=== PATIENT | female | born 1995 | race African-American/Black ===

== ENCOUNTER 2023-05-18 17:39 | Emergency (ER) | payer OTHER ==
[2023-05-18 18:38] LABS: SARS-CoV-2 Antigen Rapid Res Negative (Negative)
--- NOTE | 2023-05-18 19:19 | ER ---
Nurse's Notes [facility] Name: Melissa Dawson Age: 28 yrs Sex: Female : 1995 Arrival Date: 05/18/2023 Time: 17:39 Bed 15 Private MD: Diagnosis: Influenza due to other identified influenza virus with gastrointestinal manifestations Presentation: 05/18 17:45 Chief complaint: Patient states: she has had cough, congestion, body aches, and chills ap3 that started yesterday. patient rates her body aches a 10/10 on the pain scale at this time. Coronavirus screen: Client presents with at least one sign or symptom that may indicate coronavirus-19. Ebola Screen: No symptoms or risks identified at this time. Initial Sepsis Screen: Does the patient meet any 2 criteria? HR > 90 bpm. Does the patient have a suspected source of infection? No. Patient's initial sepsis screen is negative. Risk Assessment: Do you want to hurt yourself or someone else? Patient reports no desire to harm self or others. Onset of symptoms was May 17, 2023. 17:45 Method Of Arrival: Ambulatory ap3 17:45 Acuity: CARLI 4 ap3 Triage Assessment: 17:47 General: Appears ill, Behavior is calm, cooperative, Reports chills for feeling ill for ap3 fatigue for. Pain: Complains of pain in generalized body aches Pain currently is 10 out of 10 on a pain scale. Neuro: Level of Consciousness is awake, alert, obeys commands, Oriented to person, place, time, situation. Cardiovascular: Patient's skin is warm and dry. Respiratory: Reports cough that is Airway is patent Respiratory effort is even, unlabored, Respiratory pattern is regular, symmetrical. 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 - Social history:: Smoking status: Patient denies any tobacco usage or history of. Patient uses alcohol, occasionally. Screenin:47 [facility] ED Fall Risk Assessment (Adult) History of falling in the last 3 months, ap3 including since admission No falls in past 3 months (0 pts). Abuse screen: Denies threats or abuse. Nutritional screening: No deficits noted. Tuberculosis screening: No symptoms or risk factors identified. Assessment: 18:00 General: Appears comfortable, Behavior is calm, cooperative. Pain: Complains of pain in aa5 whole body Quality of pain is described as aching. Neuro: Level of Consciousness is awake, alert, obeys commands, Oriented to person, place, time, situation. Cardiovascular: Heart tones S1 S2 present Rhythm is regular. Respiratory: Airway is patent Respiratory effort is even, unlabored, Respiratory pattern is regular, symmetrical, Breath sounds are clear bilaterally. GI: Abdomen is round non-distended, Abd is soft and non tender X 4 quads. : No signs and/or symptoms were reported regarding the genitourinary system. EENT: Reports nasal congestion. Derm: Skin is dry, Skin is normal, Skin temperature is warm. Musculoskeletal: Range of motion: intact in all extremities. 19:28 Reassessment: DC HOME AMBULATORY. Cardiovascular: Patient's skin is warm and dry. bp Vital Signs: 17:45 BP 167 / 97; Pulse 110; Resp 19; Temp 98.8; Pulse Ox 100% ; Weight 86.18 kg; Pain 10/10;ap3 17:45 Pain Scale: Adult ap3 ED Course: 17:40 Patient arrived in ED. rg4 17:40 [facility] snw 17:40 Dusty Farris MD is Attending Physician. snw 17:46 Triage completed. ap3 17:47 Arm band placed on right wrist. ap3 17:54 Katie Mcgill, RN is Primary Nurse. aa5 18:00 Patient has correct armband on for positive identification. Bed in low position. Call aa5 light in reach. Side rails up X 1. Adult w/ patient. 19:00 Report given to ELENI Ferro. aa5 19:28 No provider procedures requiring assistance completed. Patient did not have IV access bp during this emergency room visit. Administered Medications: 19:15 Drug: traMADol PO 50 mg Route: PO; bp 19:28 Follow up: Response: No adverse reaction bp Medication: 19:29 VIS not applicable for this client. bp Outcome: 19:18 Discharge ordered by . snw 19:29 Discharged to home ambulatory, with family. bp 19:29 Condition: stable 19:29 Discharge instructions given to patient, Instructed on discharge instructions, follow up and referral plans. medication usage, Demonstrated understanding of instructions, follow-up care, medications, Prescriptions given X 2. 19:29 Patient left the ED. bp Signatures: Sri Kong, GAS TENDER-C GAS TENDER-Csnw Katie Mcgill, RN RN aa5 Janice Mckeon4 Pillo Norris RN RN bp Sanaz Alcaraz RN RN ap3
--- NOTE | 2023-05-18 19:19 | EDPHYS ---
Physician Documentation [facility] Name: Melissa Dawson Age: 28 yrs Sex: Female : 1995 Arrival Date: 05/18/2023 Time: 17:39 Bed 15 Private MD: ED Physician Dusty Farris HPI: 05/18 18:10 This 28 yrs old Black Female presents to ER via Ambulatory with complaints of Cough, snw Congestion. 18:10 The patient or guardian reports airway noise, cough, flu symptoms. Onset: The snw symptoms/episode began/occurred acutely, 2 day(s) ago, and became persistent. Severity of symptoms: At their worst the symptoms were moderate. Associated signs and symptoms: Pertinent positives: diarrhea, nausea. The patient has not experienced similar symptoms in the past. The patient has not recently seen a physician. 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 - Social history:: Smoking status: Patient denies any tobacco usage or history of. Patient uses alcohol, occasionally. ROS: 18:09 Constitutional: Negative for fever, chills, and weight loss, Eyes: Negative for injury, snw pain, redness, and discharge, ENT: Negative for injury, pain, and discharge, + congestion Neck: Negative for injury, pain, and swelling, Cardiovascular: Negative for chest pain, palpitations, and edema, Respiratory: Negative for shortness of breath, cough, wheezing, and pleuritic chest pain. 18:09 Back: Negative for injury and pain, : Negative for injury, bleeding, discharge, and swelling, MS/Extremity: Negative for injury and deformity, Skin: Negative for injury, rash, and discoloration, Neuro: Negative for headache, weakness, numbness, tingling, and seizure. 18:09 Abdomen/GI: Positive for nausea, diarrhea. Exam: 18:09 Head/Face: Normocephalic, atraumatic. Eyes: Pupils equal round and reactive to light, snw extra-ocular motions intact. Lids and lashes normal. Conjunctiva and sclera are non-icteric and not injected. Cornea within normal limits. Periorbital areas with no swelling, redness, or edema. ENT: Nares patent. No nasal discharge, no septal abnormalities noted. Tympanic membranes are normal and external auditory canals are clear. Oropharynx with no redness, swelling, or masses, exudates, or evidence of obstruction, uvula midline. Mucous membranes moist. Neck: Trachea midline, no thyromegaly or masses palpated, and no cervical lymphadenopathy. Supple, full range of motion without nuchal rigidity, or vertebral point tenderness. No Meningismus. Chest/axilla: Normal chest wall appearance and motion. Nontender with no deformity. No lesions are appreciated. Respiratory: Lungs have equal breath sounds bilaterally, clear to auscultation and percussion. No rales, rhonchi or wheezes noted. No increased work of breathing, no retractions or nasal flaring. 18:09 Back: No spinal tenderness. No costovertebral tenderness. Full range of motion. Skin: Warm, dry with normal turgor. Normal color with no rashes, no lesions, and no evidence of cellulitis. MS/ Extremity: Pulses equal, no cyanosis. Neurovascular intact. Full, normal range of motion. Neuro: Awake and alert, GCS 15, oriented to person, place, time, and situation. Cranial nerves II-XII grossly intact. Motor strength 5/5 in all extremities. Sensory grossly intact. Cerebellar exam normal. Normal gait. Psych: Awake, alert, with orientation to person, place and time. Behavior, mood, and affect are within normal limits. 18:09 Constitutional: The patient appears alert, awake, listless. 18:09 Cardiovascular: Rate: tachycardic, Rhythm: regular, Heart sounds: normal. Vital Signs: 17:45 BP 167 / 97; Pulse 110; Resp 19; Temp 98.8; Pulse Ox 100% ; Weight 86.18 kg; Pain 10/10;ap3 17:45 Pain Scale: Adult ap3 MDM: 17:55 Patient medically screened. jesús 19:19 Differential Diagnosis: Bronchitis Influenza Upper Respiratory Infection Viral snw Syndrome. Data reviewed: vital signs, nurses notes, lab test result(s). I considered the following discharge prescriptions or medication management in the emergency department Medications were administered in the Emergency Department. See MAR. Counseling: I had a detailed discussion with the patient and/or guardian regarding the historical points, exam findings, and any diagnostic results supporting the discharge/admit diagnosis, lab results, the need for outpatient follow up, to return to the emergency department if symptoms worsen or persist or if there are any questions or concerns that arise at home. Special discussion: Based on the history and exam findings, there is no indication for further emergent testing or inpatient evaluation. I discussed with the patient/guardian the need to see the primary care provider for further evaluation of the symptoms. 05/18 17:59 Order name: Flu; Complete Time: 19:09 snw 05/18 17:59 Order name: SARS-COV-2 Antigen Rapid; Complete Time: 18:42 snw Administered Medications: 19:15 Drug: traMADol PO 50 mg Route: PO; bp 19:28 Follow up: Response: No adverse reaction bp Disposition Summary: 05/18/23 19:18 Discharge Ordered Location: Home snw Condition: Stable snw Diagnosis - Influenza due to other identified influenza virus with gastrointestinal snw manifestations Followup: snw - With: Emergency Department - When: As needed - Reason: Worsening of condition Followup: snw - With: Private Physician - When: 2 - 3 days - Reason: Recheck today's complaints, Continuance of care, Re-evaluation by your physician Discharge Instructions: - Discharge Summary Sheet snw - Influenza, Adult snw Forms: - Work release form snw - Medication Reconciliation Form snw - Thank You Letter snw - Antibiotic Education snw - Prescription Opioid Use snw - Patient Portal Instructions snw - Leadership Thank You Letter snw Prescriptions: - Mobic 7.5 mg Oral Tablet - take 1 tablet by ORAL route once daily take with food; 20 tablet; Refills: 0, snw Product Selection Permitted - Zofran 4 mg Oral Tablet - take 1 tablet by ORAL route every 12 hours As needed; 6 tablet; Refills: 0, snw Product Selection Permitted Signatures: Dispatcher [employer] Dusty Merritt MD MD cha Waters, Shelly, FOOD AND DRUG RESEARCH SCIENTIST-C FOOD AND DRUG RESEARCH SCIENTIST-Yasmaniw Pillo Norris, RN RN bp Sanaz Alcaraz RN RN ap3
[2023-05-18] MEDS ORDERED: TRAMADOL HCL 50 MG TAB ONE (19:34)
[2023-05-18 19:41] VITALS: BP 167/97; TEMP 98.8; O2SAT 100
== END 2023-05-18 19:29 | disposition home or self-care (01) ==
LOC: ER 17:39
DX: J10.2 Influenza due to other identified influenza virus with gastrointestinal manifestations (principal); Z20.822 Contact with and (suspected) exposure to COVID-19
CPT/HCPCS: 36415; 87804; 87811; 99283